=== PATIENT | female | born 1985 | race Caucasian/White ===

== ENCOUNTER 2020-11-11 10:35 | Day surgery (SDC) | payer BC ==
[~2020-11-11] VITALS: Ht 172.7 cm; Wt 123.8 kg
[~2020-11-11 10:35] MED LIST: SETLAKIN 0.151 EAC2 PO
--- NOTE | 2020-11-11 11:11 | NUR ---
11/11/20 Minoo Angel 1 TRY RIGHT HAND BLEW 2 TRY RIGHT WRIST NO FLASH
--- NOTE | 2020-11-11 14:24 | NUR ---
11/11/20 1424 Lindsay Ortega PT. VERBALIZES HAVING AN IRRITATED THROAT,COUGH LIKE A TICKLE TO THE BACK OF HER THROAT.
== END 2020-11-11 12:50 | disposition home or self-care (01) ==
LOC: ORSCSDS 10:35
PROVIDERS: Internal Medicine Gastroenterology
PROC: 0DB78ZX Excision of Stomach, Pylorus, Via Natural or Artificial Opening Endoscopic, Diagnostic (ICD-10-PCS; principal; 2020-11-11 11:45)
PROC: 0DBN8ZX Excision of Sigmoid Colon, Via Natural or Artificial Opening Endoscopic, Diagnostic (ICD-10-PCS; principal; 2020-11-11 11:45)
PROC: 0DB98ZX Excision of Duodenum, Via Natural or Artificial Opening Endoscopic, Diagnostic (ICD-10-PCS; principal; 2020-11-11 11:45)
DX: D50.0 Iron deficiency anemia secondary to blood loss (chronic) (principal); D12.5 Benign neoplasm of sigmoid colon; K62.5 Hemorrhage of anus and rectum; K44.9 Diaphragmatic hernia without obstruction or gangrene; K64.1 Second degree hemorrhoids; E66.01 Morbid (severe) obesity due to excess calories; Z68.41 Body mass index [BMI] 40.0-44.9, adult
CPT/HCPCS: 88305; 88342; J2704; J7120